=== PATIENT | female | born 1990 | race Caucasian/White ===

== ENCOUNTER 2018-07-12 10:52 | Outpatient (CLI) | payer MEDICAID, SELFPAY ==
[2018-07-12 11:40] LABS: Bilirubin Negative (Negative); Blood Negative (Negative); Clarity Clear; Glucose Negative (Negative); Ketones Negative (Negative); Leukocyte Esterase Negative (Negative); Nitrite Negative (Negative); Specific Gravity 1.015 (1.005-1.025); Urobilinogen 0.2 EU/dL (Up TO 0.2); pH 7.5 (5-8)
[2018-07-12 12:04] LABS: Abs Immature Grans 0.02 k/cumm (0.0-0.09); Absolute Basophil Count 0.03 k/cumm (0.0-0.2); Absolute Eosinophil Count 0.07 k/cumm (0.0-0.7); Absolute Lymphocyte Count 2.21 k/cumm (1.2-3.4); Absolute Monocyte Count 0.75 k/cumm (0.11-0.7); Absolute Neutrophil Count 3.61 k/cumm (1.2-6.7); Basophils % 0.4; HGB 14.3 g/dL (12.0-15.5); Immature Grans % 0.3; Mean Corp. HGB Concentration 33.3 g/dL (32.0-36.0); Mean Corpuscular Hemoglobin 29.4 pg (27.0-33.0); Mean Corpuscular Volume 88.5 fL (80-95); Mean Platelet Volume 9.7 fL (8.0-11.0); Monocytes % 11.2; Neutrophils % 54.1; Platelet Count 280 x1000/uL (130-400); RBC 4.86 m/cumm (4.00-5.20); RBC Distribution Width 13.1 % (11.7-14.6); White Blood Cell Count 6.69 k/cumm (4.4-10.8)
[2018-07-12 12:21] LABS: Hemoglobin A1C 5.4 % (4.5-6.2)
[2018-07-12 12:29] LABS: ALT 26 U/L (12-78); AST 19 U/L (15-37); Albumin 3.8 g/dL (3.4-5.0); Alkaline Phosphatase 94 U/L (46-116); Anion Gap 9.1 mmol/L (3-11); BUN 7 mg/dL (7-18); Bilirubin, Total 0.5 mg/dL (0.2-1.0); CO2 27.9 mmol/L (21.0-32.0); CREATININE 0.94 mg/dL (0.55-1.02); Calcium 9.5 mg/dL (8.5-10.1); Chloride 103 mmol/L (98-107); Cholesterol 160 mg/dL (50-200); Glucose 94 mg/dL (70-100); HDL Cholesterol 58 mg/dL (40-60); LDL CHOLESTEROL 87 mg/dL (<100); Potassium 4.3 mmol/L (3.5-5.1); Sodium 140 mmol/L (136-145); TSH 2.58 uIU/mL (0.358-3.74); Total Protein 7.1 g/dL (6.4-8.2); Triglyceride 78 mg/dL (30-150)
== END 2018-07-12 11:12 ==
PROVIDERS: PCP General Practice; Visit Provider Nurse Practitioner Psychiatric/Mental Health
DX: F20.9 Schizophrenia, unspecified (principal)
CPT/HCPCS: 36415; 80053; 80061; 83721; 81003; 83036; 84443; 85025

== ENCOUNTER 2018-08-30 15:30 | Outpatient (CLI) | payer MEDICAID, SELFPAY ==
[2018-08-30 15:54] LABS: Abs Immature Grans 0.01 k/cumm (0.0-0.09); Absolute Basophil Count 0.02 k/cumm (0.0-0.2); Absolute Eosinophil Count 0.13 k/cumm (0.0-0.7); Absolute Lymphocyte Count 2.71 k/cumm (1.2-3.4); Absolute Monocyte Count 0.78 k/cumm (0.11-0.7); Absolute Neutrophil Count 4.18 k/cumm (1.2-6.7); Basophils % 0.3; Eosinophils % 1.7; HCT 43.1 % (36.0-46.0); HGB 14.2 g/dL (12.0-15.5); Immature Grans % 0.1; Lymphocytes % 34.6; Mean Corp. HGB Concentration 32.9 g/dL (32.0-36.0); Mean Corpuscular Hemoglobin 29.3 pg (27.0-33.0); Mean Corpuscular Volume 88.9 fL (80-95); Mean Platelet Volume 9.4 fL (8.0-11.0); Neutrophils % 53.3; Platelet Count 299 x1000/uL (130-400); RBC 4.85 m/cumm (4.00-5.20); White Blood Cell Count 7.83 k/cumm (4.4-10.8)
[2018-08-30 16:02] LABS: Bilirubin Negative (Negative); Blood Negative (Negative); Clarity Clear; Glucose Negative (Negative); Ketones Negative (Negative); Leukocyte Esterase Negative (Negative); Nitrite Negative (Negative); Specific Gravity 1.025 (1.005-1.025); Urobilinogen 0.2 EU/dL (Up TO 0.2)
[2018-08-30 16:48] LABS: ALT 26 U/L (12-78); AST 18 U/L (15-37); Albumin 3.9 g/dL (3.4-5.0); Alkaline Phosphatase 100 U/L (46-116); Anion Gap 9.6 mmol/L (3-11); BUN 8 mg/dL (7-18); Bilirubin, Total 0.2 mg/dL (0.2-1.0); CO2 28.4 mmol/L (21.0-32.0); CREATININE 0.97 mg/dL (0.55-1.02); Calcium 8.9 mg/dL (8.5-10.1); Chloride 104 mmol/L (98-107); Glucose 81 mg/dL (70-100); Potassium 3.7 mmol/L (3.5-5.1); Sodium 142 mmol/L (136-145); TSH (W/Ref FT4) 2.07 uIU/mL (0.358-3.74)
[2018-09-02 10:21] LABS: Prolactin 55.4 ng/ml
== END 2018-08-30 15:50 ==
PROVIDERS: PCP General Practice; Visit Provider Nurse Practitioner Psychiatric/Mental Health
DX: F20.9 Schizophrenia, unspecified (principal); Z79.899 Other long term (current) drug therapy
CPT/HCPCS: 36415; 80053; 81003; 84146; 84443; 85025

== ENCOUNTER 2018-10-01 00:56 | Outpatient (CLI) | payer MEDICAID, SELFPAY ==
--- NOTE | 2018-10-01 14:53 | DI.US_ITS ---
SYMPTOMS/DIAGNOSIS: MASTODYNIA, N64.4, DENSE TISSUE AT STERNUM, BROWN NIPPLE DISCHARGE X 3 YEARS, H/O CYSTS IN BREAST LEFT BREAST ULTRASOUND: Left breast ultrasound was performed. All four quadrants of the left breast were evaluated sonographically. No suspicious cystic or solid masses are seen sonographically. IMPRESSION: Negative left breast ultrasound. The findings were discussed with the patient on the date of the examination.
== END 2018-10-01 01:16 ==
PROVIDERS: PCP General Practice; Visit Provider Nurse Practitioner Women's Health
DX: N64.4 Mastodynia (principal); N64.52 Nipple discharge
CPT/HCPCS: 76642

== ENCOUNTER 2018-12-23 13:57 | Outpatient (CLI) | payer MEDICAID, SELFPAY ==
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
== END 2018-12-23 14:17 ==
PROVIDERS: PCP General Practice; Visit Provider General Practice
DX: M79.671 Pain in right foot (principal)
CPT/HCPCS: 73630

== ENCOUNTER 2019-06-18 16:29 | Outpatient (REF) | payer MEDICAID, SELFPAY ==
--- NOTE | 2019-06-18 15:00 | PAPFT_PTH ---
PATIENT: Avril Adams V LOC: [facility] U#:[id number] AGE/SX: 28/F ROOM: RE06/18/[address]: Jacquelin Murray NP : 1990 BED: DIS: 06/18/2019 SPEC #: [id number] RECD: 06/18/19 18:01 STATUS: FE RECatina #: [id number] NITIN: 06/18/19 15:[address]: Jacquelin Murray NP DEPT: [facility] Cytology RECD BY: Franchesca Gaston ENTERED: 06/18/19 18:01 SP TYPE: PAPFT OTHR DR: Flip Cabezas Tissues: 1 - CX/ENDOCX FOR PAP SMEARS Procedures: PAP THIN PREP/UVM Screening Comments: [id number]
== END 2019-06-18 16:49 ==
LOC: LBN 16:29
PROVIDERS: PCP General Practice; Visit Provider Nurse Practitioner Women's Health
DX: Z12.4 Encounter for screening for malignant neoplasm of cervix (principal)
CPT/HCPCS: 88142

== ENCOUNTER 2019-12-25 21:22 | Inpatient (IN) | payer MEDICAID, SELFPAY ==
[2019-12-25] VITALS (14 sets, daily range): BP systolic 131–173; BP diastolic 82–100; PULSE 81–118; RESP 16–33; TEMP 36.3–36.8; O2SAT 90–96
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
--- NOTE | 2019-12-25 21:30 | RT.EKG_ITS ---
APPROVED REPORT Exam: Resting ECG Patient Location: E HR:106 bpm ECG Measurements Heart Rate 106 AXIS NJ 128 P 51 QRSd 78 QRS 52 QT 358 T -26 QTc 477 <Conclusion> Sinus tachycardia...rate> 99 Probable left atrial enlargement...P >50mS, <-0.10mV V1, QRS normal, no STEMI, intervals normal.
[2019-12-25 21:49] LABS: Abs Immature Grans 0.03 10^3/uL (0.0-0.06); Absolute Basophil Count 0.05 10^3/uL (0.0-0.2); Absolute Eosinophil Count 0.13 10^3/uL (0.0-0.7); Absolute Lymphocyte Count 3.17 10^3/uL (1.2-3.4); Absolute Monocyte Count 0.96 10^3/uL (0.1-0.8); Absolute Neutrophil Count 5.71 10^3/uL (1.2-6.7); Basophils % 0.5; Eosinophils % 1.3; HCT 45.2 % (36.0-46.0); Immature Grans % 0.3; Lymphocytes % 31.5; MCH 29.3 pg (27.0-33.0); MCHC 33.2 % (32.0-36.0); MCV 88.3 fL (80-95); MPV 9.8 fL (8.0-11.0); Monocytes % 9.6; Neutrophils % 56.8; Platelet Count 302 10^3/uL (130-400); RBC 5.12 10^6/uL (3.93-5.22); RDW 12.3 % (11.7-14.6); WBC 10.05 10^3/uL (4.4-10.8)
[2019-12-25 22:08] LABS: HCG Qual (Serum) Negative
[2019-12-25 22:10] LABS: ALT 30 U/L (14-59); AST 19 U/L (15-37); Albumin 3.9 g/dL (3.4-5.0); Alkaline Phosphatase 104 U/L (46-116); Anion Gap 10.6 mmol/L (3-11); BUN 9 mg/dL (7-18); Bilirubin, Total 0.2 mg/dL (0.2-1.0); CO2 24.4 mmol/L (21.0-32.0); Calcium 9.5 mg/dL (8.5-10.1); Chloride 103 mmol/L (98-107); Glucose 104 mg/dL (74-106); Potassium 3.6 mmol/L (3.5-5.1); Sodium 138 mmol/L (136-145); Total Protein 7.3 g/dL (6.4-8.2)
[2019-12-25 22:11] LABS: ETHANOL BLOOD < 3.0 mg/dL (<3); Troponin I < 0.05 ng/mL (<0.06)
[2019-12-25 22:15] LABS: Salicylate < 2.8 mg/dL (2.8-20.0)
[2019-12-25 22:18] LABS: Bilirubin Negative (Negative); Blood Negative (Negative); Clarity Clear (Clear); Glucose Negative (Negative); Ketones Negative (Negative); Leukocyte Esterase Negative (Negative); Nitrite Negative (Negative); Urobilinogen 0.2 EU/dL (Up TO 0.2); pH 6.5 (5-8)
[2019-12-25 22:18] LABS: Acetaminophen < 2 ug/mL (10-30)
[2019-12-25 22:31] LABS: *AMPHETAMINES SCREEN URINE Negative (Negative); *BARBITURATES SCREEN URINE Negative (Negative); *BENZODIAZEPINES SCREEN URINE Negative (Negative); Cannabinoids THC Negative (Negative); Cocaine Screen,Urine Negative (Negative); METHADONE URINE SCREEN Negative (Negative); OPIATES URINE SCREEN Negative (Negative)
[2019-12-25 22:32] LABS: Tricyclic Antidepressants Negative (Negative)
[2019-12-26] VITALS (53 sets, daily range): BP systolic 98–146; BP diastolic 65–125; PULSE 81–148; RESP 12–25; TEMP 36.6–36.7; O2SAT 93–99
[2019-12-26 02:35] LABS: Acetaminophen < 2 ug/mL (10-30)
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
[2019-12-26] MEDS: Normal Saline Flush 10 ML SYR IVP (06:54)
[2019-12-26] MEDS: Normal Saline 500 ML IV (06:54)
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
--- NOTE | 2019-12-26 09:30 | NUR.NOTE ---
RN calls pharmacy to find out the status of patient's home medications. Pharmacist tells RN we are waiting on patient's home medications to be dony to hospital.Nursing Note:
--- NOTE | 2019-12-26 10:25 | PHA.REVIEW ---
Pharmacy Admission Review - Admission Clinical Review (Last Reviewed 12/26/19 @ 05:58 by Perry Coello MD) Suicide attempt by drug overdose (Acute) acetaminophen [From Vicodin] Allergy (Severe, Verified 12/25/19 22:14) Anaphylaxsis hydrocodone bitartrate [From Vicodin] Allergy (Severe, Verified 12/25/19 22:14) Anaphylaxsis gluten Allergy (Intermediate, Unverified 12/25/19 22:14) lactase [From Dairy Aid] Allergy (Intermediate, Unverified 12/25/19 22:14) Height 5 ft 4 in Weight 95.2 kg - Renal Dosing Renal Dosing: BUN 9 mg/dL (7-18) 12/25/19 21:40 Creatinine 1.00 mg/dL (0.55-1.02) 12/25/19 21:40 Medications needing adjustments: Reviewed (CrCl ~92.1 using adjusted BW. Current meds okay) - Anticoagulation Anticoagulation: Hgb 15.0 g/dL (11.2-15.7) 12/25/19 21:40 Hct 45.2 % (36.0-46.0) 12/25/19 21:40 Plt Count 302 10^3/uL (130-400) 12/25/19 21:40 Creatinine 1.00 mg/dL (0.55-1.02) 12/25/19 21:40 DVT Prohphylaxis: N/A Therapeutic Anticoagulation: N/A - Opiate Usage Evaluate Pain Scale/Pains Meds: N/A - Relevant Labs Sodium 138 mmol/L (136-145) 12/25/19 21:40 Potassium 3.6 mmol/L (3.5-5.1) 12/25/19 21:40 Chloride 103 mmol/L (98-107) 12/25/19 21:40 Magnesium 2.0 mg/dL (1.8-2.4) 12/25/19 21:40 Electrolytes, C-Reactive P, ESR: Reviewed (Labs look good) - DM Control DM Control: Glucose 104 mg/dL (74-106) 12/25/19 21:40 Insulin Dosing: N/A - Heart Failure/RI Heart Failure/RI: Troponin I < 0.05 ng/mL (<0.06) 12/25/19 21:40 EF%, ROBERTO's, B-Blockers, Diuretics: N/A - BP Control BP Control: Blood Pressure [Left Arm] 137/88 Blood Pressure [Left Arm] 133/98 Blood Pressure 146/74 Blood Pressure 173/82 If elevated: Reviewed (BP was consistently elevated upon admission, last reading was within normal range) - Qtc Review If Elevated: N/A (No recent EKG labs) - IV to PO Switch IV Medications: Reviewed - Home Meds Relevent Home Meds Not ordered & why?: Clonazepam, cranberry extract, fluoxetine, hydroxyzine, magnesium oxide, nephro-eric, olanzapine - Current meds Current Medication Order Review: Reviewed (Currently recieving fluids and taking at home norethidrone and acetylcysteine.) - Comments Comments/Follow Ups: Labs look normal, monitor BP. Came in having taken 165mg olanzapine, 18mg clonazepam, 125mg hydroxyzine, and 240mg fluoxetine. Patient will most likely be sent to a psychiatric inpatient treatment center after being medically cleared.
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
[2019-12-26 13:25] LABS: COVID-19 RT-PCR UVMMC Result Negative (Negative)
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
--- NOTE | 2019-12-26 14:20 | NUR.NOTE ---
RN speaks to patient about going home and working out problems in constructive ways which takes many forms including counseling. Patient appreciative of the give and take talk. Nursing Note:
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
== END 2019-12-26 17:26 | disposition home or self-care (01) | DRG 918 ==
LOC: ER 22:55 → ICU 23:17
PROVIDERS: Admitting Provider Family Medicine; Emergency Provider Physician Assistant; PCP Nurse Practitioner; Visit Provider Family Medicine
DX: T43.592A Poisoning by other antipsychotics and neuroleptics, intentional self-harm, initial encounter (principal); F84.0 Autistic disorder; G40.89 Other seizures; T43.222A Poisoning by selective serotonin reuptake inhibitors, intentional self-harm, initial encounter; T42.4X2A Poisoning by benzodiazepines, intentional self-harm, initial encounter; R00.0 Tachycardia, unspecified; F31.9 Bipolar disorder, unspecified; F43.10 Post-traumatic stress disorder, unspecified; F20.9 Schizophrenia, unspecified
CPT/HCPCS: 36415; 80053; 80307; 93005; 99222; 99238; 99285; NC; U0003; 80320; 80329; 81003; 83735; 84484; 84703; 85025; 93010; 99235

== ENCOUNTER 2020-01-14 02:20 | Outpatient (CLI) | payer MEDICAID, SELFPAY ==
[2020-01-14 11:19] LABS: Abs Immature Grans 0.03 10^3/uL (0.0-0.06); Absolute Basophil Count 0.04 10^3/uL (0.0-0.2); Absolute Lymphocyte Count 1.94 10^3/uL (1.2-3.4); Absolute Monocyte Count 0.58 10^3/uL (0.1-0.8); Absolute Neutrophil Count 4.27 10^3/uL (1.2-6.7); Basophils % 0.6; Eosinophils % 1.4; HCT 45.9 % (36.0-46.0); HGB 15.1 g/dL (11.2-15.7); Immature Grans % 0.4; Lymphocytes % 27.9; MCH 29.5 pg (27.0-33.0); MCHC 32.9 % (32.0-36.0); MCV 89.8 fL (80-95); MPV 9.6 fL (8.0-11.0); Monocytes % 8.3; Neutrophils % 61.4; Nucleated RBC 0 %; Platelet Count 304 10^3/uL (130-400); RBC 5.11 10^6/uL (3.93-5.22); RDW 12.6 % (11.7-14.6); RDW-SD 41.4 fL; WBC 6.96 10^3/uL (4.4-10.8)
[2020-01-14 11:44] LABS: Hemoglobin A1C 5.4 % (3.8-5.6)
[2020-01-14 12:16] LABS: Lithium 0.37 mmol/L (0.60-1.20)
[2020-01-14 12:32] LABS: ALT 37 U/L (14-59); AST 15 U/L (15-37); Alkaline Phosphatase 101 U/L (46-116); Anion Gap 8.8 mmol/L (3-11); BUN 8 mg/dL (7-18); Bilirubin, Total 0.6 mg/dL (0.2-1.0); CO2 26.2 mmol/L (21.0-32.0); CREATININE 0.87 mg/dL (0.55-1.02); Calcium 9.5 mg/dL (8.5-10.1); Calculated LDL 72 mg/dL (<100); Chloride 106 mmol/L (98-107); Cholesterol 138 mg/dL (<200); Glucose 88 mg/dL (74-106); HDL Cholesterol 46 mg/dL (40-60); Potassium 4.4 mmol/L (3.5-5.1); Sodium 141 mmol/L (136-145); TSH 2.23 uIU/mL (0.36-3.74); Triglyceride 102 mg/dL (<150)
== END 2020-01-14 02:40 ==
PROVIDERS: PCP Nurse Practitioner
DX: T50.902A Poisoning by unspecified drugs, medicaments and biological substances, intentional self-harm, initial encounter (principal); T43.59 Poisoning by, adverse effect of and underdosing of other antipsychotics and neuroleptics; Z79.899 Other long term (current) drug therapy; Z51.81 Encounter for therapeutic drug level monitoring
CPT/HCPCS: 36415; 80053; 80061; 80178; 83036; 84443; 85025

== ENCOUNTER 2020-03-16 09:51 | Outpatient (CLI) | payer MEDICAID, SELFPAY ==
--- NOTE | 2020-03-16 10:45 | DI.RAD_ITS ---
EXAM: XR SHOULDER LT COMPLETE 2+V CLINICAL HISTORY: left shoulder pain, M25.512, S/P FALL. TECHNIQUE: 2D digital imaging was performed. COMPARISON: No exams were available for comparison FINDINGS: BONES: No acute fracture is present. No bony destructive lesion is seen. JOINTS: No dislocation present. The AC joint is not widened. SOFT TISSUE: Normal. IMPRESSION: Unremarkable radiographs of the left shoulder. DATA REPOSITORY: RADIATION DOSE DELIVERED:
--- NOTE | 2020-03-16 10:45 | DI.RAD_ITS ---
EXAM: XR HUMERUS LT CLINICAL HISTORY: left humerus pain, s/p fall, M79.622. TECHNIQUE: 2D digital imaging was performed. COMPARISON: No exams were available for comparison FINDINGS: BONES: No acute fracture is present. No bony destructive lesion is seen. Visualized portion of elbow and shoulder joints are unremarkable. SOFT TISSUE: Normal. IMPRESSION: Unremarkable radiographs of the left humerus. DATA REPOSITORY: RADIATION DOSE DELIVERED:
== END 2020-03-16 10:11 ==
PROVIDERS: PCP Nurse Practitioner; Visit Provider Nurse Practitioner Family
DX: M25.512 Pain in left shoulder (principal); M79.622 Pain in left upper arm
CPT/HCPCS: 73030; 73060

== ENCOUNTER 2020-03-22 12:32 | Outpatient (CLI) | payer MEDICAID, SELFPAY ==
[2020-03-24 19:28] LABS: Patient Race White; SARS-CoV-2 RNA Undetected (Undetected); SARS-CoV-2 Specimen Source Nasal
== END 2020-03-22 12:52 ==
PROVIDERS: PCP Nurse Practitioner; Visit Provider Family Medicine
DX: R50.9 Fever, unspecified (principal)
CPT/HCPCS: U0003

== ENCOUNTER 2020-06-22 15:34 | Outpatient (REF) | payer MEDICAID, SELFPAY ==
[2020-06-24 13:16] LABS: COVID-19 RT-PCR UVMMC Result Negative (Negative)
== END 2020-06-22 15:54 ==
LOC: LBN 15:34
PROVIDERS: PCP Nurse Practitioner; Visit Provider Physician Assistant
DX: Z11.52 Encounter for screening for COVID-19 (principal)
CPT/HCPCS: U0003

== ENCOUNTER 2020-08-04 04:04 | Outpatient (CLI) | payer MEDICAID, SELFPAY ==
[2020-08-04 13:35] LABS: Lithium 0.3 mmol/l (0.6-1.2)
[2020-08-04 13:49] LABS: TSH 2.17 uIU/mL (0.36-3.74)
== END 2020-08-04 04:05 | disposition home or self-care (01) ==
PROVIDERS: PCP Nurse Practitioner
DX: F25.0 Schizoaffective disorder, bipolar type (principal); Z51.81 Encounter for therapeutic drug level monitoring; Z79.899 Other long term (current) drug therapy
CPT/HCPCS: 36415; 80178; 84443

== ENCOUNTER 2020-08-24 14:49 | Outpatient (REF) | payer MEDICAID, SELFPAY | END 2020-08-24 14:50 | disposition home or self-care (01) | LOC: LBN 14:49 | PROVIDERS: PCP Nurse Practitioner; Visit Provider Internal Medicine | DX: R31.9 Hematuria, unspecified (principal); R35.0 Frequency of micturition | CPT/HCPCS: 87086 ==

== ENCOUNTER 2021-01-25 13:31 | Outpatient (CLI) | payer MEDICAID, SELFPAY ==
[2021-01-25 14:10] LABS: Abs Immature Grans 0.02 10^3/uL (0.0-0.06); Absolute Basophil Count 0.05 10^3/uL (0.0-0.2); Absolute Eosinophil Count 0.13 10^3/uL (0.0-0.7); Absolute Lymphocyte Count 2.16 10^3/uL (1.2-3.4); Absolute Monocyte Count 0.76 10^3/uL (0.1-0.8); Absolute Neutrophil Count 4.22 10^3/uL (1.2-6.7); Basophils % 0.7; Eosinophils % 1.8; HCT 46.4 % (36.0-46.0); HGB 14.8 g/dL (11.2-15.7); Immature Grans % 0.3; Lymphocytes % 29.4; MCH 29.2 pg (27.0-33.0); MCHC 31.9 % (32.0-36.0); MCV 91.7 fL (80-95); MPV 9.5 fL (8.0-11.0); Monocytes % 10.4; Neutrophils % 57.4; Nucleated RBC 0 %; Platelet Count 323 10^3/uL (130-400); RBC 5.06 10^6/uL (3.93-5.22); RDW 12.1 % (11.7-14.6); RDW-SD 41.1 fL; WBC 7.34 10^3/uL (4.4-10.8)
[2021-01-25 14:37] LABS: Hemoglobin A1C 5.2 % (<5.7)
[2021-01-25 14:59] LABS: Lithium 0.3 mmol/l (0.6-1.2)
[2021-01-25 15:14] LABS: ALT 34 U/L (14-59); AST 15 U/L (15-37); Albumin 4.1 g/dL (3.4-5.0); Alkaline Phosphatase 103 U/L (46-116); Anion Gap 10.7 mmol/L (3-11); BUN 11 mg/dL (7-18); Bilirubin, Total 0.4 mg/dL (0.2-1.0); CO2 26.3 mmol/L (21.0-32.0); CREATININE 1.2 mg/dL (0.55-1.02); Calcium 9.5 mg/dL (8.5-10.1); Calculated LDL 68 mg/dL (<100); Chloride 105 mmol/L (98-107); Cholesterol 144 mg/dL (<200); Glucose 125 mg/dL (74-106); HDL Cholesterol 46 mg/dL (40-60); Sodium 142 mmol/L (136-145); TSH 2.03 uIU/mL (0.36-3.74); Total Protein 7.2 g/dL (6.4-8.2); Triglyceride 150 mg/dL (<150)
[2021-01-25 23:00] LABS: Prolactin 121.9 ng/mL (See Table)
== END 2021-01-25 13:32 | disposition home or self-care (01) ==
PROVIDERS: PCP Nurse Practitioner; Visit Provider Nurse Practitioner
DX: F25.0 Schizoaffective disorder, bipolar type (principal); F43.12 Post-traumatic stress disorder, chronic; F84.0 Autistic disorder; F44.5 Conversion disorder with seizures or convulsions; Z79.899 Other long term (current) drug therapy; Z51.81 Encounter for therapeutic drug level monitoring
CPT/HCPCS: 36415; 80053; 80061; 80178; 83036; 84146; 84443; 85025

== ENCOUNTER 2021-02-21 18:27 | Outpatient (REF) | payer MEDICAID, SELFPAY ==
[2021-02-21 22:01] LABS: Abs Immature Grans 0.01 10^3/uL (0.0-0.06); Absolute Basophil Count 0.03 10^3/uL (0.0-0.2); Absolute Eosinophil Count 0.11 10^3/uL (0.0-0.7); Absolute Lymphocyte Count 2.26 10^3/uL (1.2-3.4); Absolute Monocyte Count 0.58 10^3/uL (0.1-0.8); Absolute Neutrophil Count 3.14 10^3/uL (1.2-6.7); Basophils % 0.5; Eosinophils % 1.8; HCT 43.7 % (36.0-46.0); HGB 14.1 g/dL (11.2-15.7); Immature Grans % 0.2; Lymphocytes % 36.9; MCH 29.6 pg (27.0-33.0); MCHC 32.3 % (32.0-36.0); MCV 91.6 fL (80-95); MPV 10.4 fL (8.0-11.0); Monocytes % 9.5; Neutrophils % 51.1; Nucleated RBC 0 %; Platelet Count 312 10^3/uL (130-400); RBC 4.77 10^6/uL (3.93-5.22); RDW 12.2 % (11.7-14.6); RDW-SD 41.1 fL; WBC 6.13 10^3/uL (4.4-10.8)
[2021-02-21 22:02] LABS: Bilirubin Negative (Negative); Blood Trace-intact (Negative); Clarity Sl Cloudy (Clear); Glucose Negative (Negative); Ketones Negative (Negative); Leukocyte Esterase Negative (Negative); Nitrite Negative (Negative); Specific Gravity >= 1.030 (1.005-1.025); Urobilinogen 0.2 EU/dL (Up TO 0.2); pH 6.5 (5-8)
[2021-02-21 22:10] LABS: Bacteria Moderate HPF (Negative); Casts Negative LPF (Negative); Crystals Negative HPF (Negative); Epithelial Cells Few HPF (Negative); Mucus Negative (Negative); WBC Negative HPF (0-5)
[2021-02-21 22:11] LABS: C & S Indicated? Yes
[2021-02-21 22:34] LABS: ALT 27 U/L (14-59); AST 20 U/L (15-37); Albumin 3.9 g/dL (3.4-5.0); Alkaline Phosphatase 85 U/L (46-116); Anion Gap 7.1 mmol/L (3-11); BUN 7 mg/dL (7-18); Bilirubin, Total 0.4 mg/dL (0.2-1.0); CO2 27.9 mmol/L (21.0-32.0); CREATININE 0.8 mg/dL (0.55-1.02); Calcium 9.2 mg/dL (8.5-10.1); Chloride 107 mmol/L (98-107); Glucose 107 mg/dL (74-106); Sodium 142 mmol/L (136-145)
[2021-02-23 15:46] LABS: COVID-19 RT-PCR UVMMC Result Negative (Negative)
== END 2021-02-21 18:28 | disposition home or self-care (01) ==
LOC: LBN 18:27
PROVIDERS: PCP Nurse Practitioner; Visit Provider Physician Assistant
DX: R35.0 Frequency of micturition (principal); R39.89 Other symptoms and signs involving the genitourinary system; R10.9 Unspecified abdominal pain; R19.4 Change in bowel habit; Z20.822 Contact with and (suspected) exposure to COVID-19
CPT/HCPCS: 80053; U0003; 81003; 81015; 85025; 87086

== ENCOUNTER 2021-05-25 00:52 | Outpatient (CLI) | payer MEDICAID, SELFPAY ==
[2021-05-26 03:20] LABS: COVID-19 RT-PCR UVMMC Result Negative (Negative)
== END 2021-05-25 00:53 | disposition home or self-care (01) ==
LOC: LBO 00:52
PROVIDERS: PCP Nurse Practitioner; Visit Provider Nurse Practitioner
DX: Z20.822 Contact with and (suspected) exposure to COVID-19 (principal)
CPT/HCPCS: U0003

== ENCOUNTER 2021-08-11 03:42 | Outpatient (CLI) | payer MEDICAID, SELFPAY | END 2021-08-11 03:43 | disposition home or self-care (01) | LOC: LBO 03:42 | PROVIDERS: PCP Nurse Practitioner; Visit Provider Psychiatry & Neurology Psychiatry ==

== ENCOUNTER 2021-08-31 03:04 | Outpatient (CLI) | payer MEDICAID, SELFPAY ==
[2021-08-31 22:30] LABS: Prolactin 53.2 ng/mL (See Note)
== END 2021-08-31 03:05 | disposition home or self-care (01) ==
PROVIDERS: PCP Nurse Practitioner; Visit Provider Psychiatry & Neurology Psychiatry
DX: F25.0 Schizoaffective disorder, bipolar type (principal); E22.1 Hyperprolactinemia
CPT/HCPCS: 36415; 84146

== ENCOUNTER → 2021-09-26 01:08 | Outpatient (CLI) | payer MEDICAID, SELFPAY ==
--- NOTE | 2021-09-26 08:30 | DI.US_ITS ---
Exam(s) US PELVIS TRANSVAGINAL EXAM: US PELVIS TRANSVAGINAL CLINICAL HISTORY: pelvic pain,R10.2 TECHNIQUE: Transabdominal and transvaginal imaging was performed using standard protocol. COMPARISON: No exams were available for comparison FINDINGS: KIDNEYS: Kidneys are symmetric in size. No evidence of renal calculi. No evidence of hydronephrosis. No renal mass or cyst identified. UTERUS: Anteverted. 7.1 x 2.4 x 4.1 cm Endometrium: 2 millimeters Myometrium: Unremarkable. Cervix: Unremarkable. OVARIES: Right: Cyst or mass: None. Left: Cyst or mass: None. DOPPLER: Color: Symmetric and uniform flow to both ovaries. No hyperemia. Duplex: Normal ovarian arterial waveforms visualized. CUL-DE-SAC: Free fluid: None. IMPRESSION: 1. Normal-appearing uterus with endometrial stripe within normal limits. 2. Unremarkable bilateral ovaries. DATA REPOSITORY:
== END ==
PROVIDERS: PCP Nurse Practitioner; Visit Provider Nurse Practitioner Women's Health
DX: R10.2 Pelvic and perineal pain (principal)
CPT/HCPCS: 76830; 76856

== ENCOUNTER 2022-02-09 04:11 | Outpatient (CLI) | payer MEDICAID, SELFPAY ==
[2022-02-09 11:42] LABS: Hemoglobin A1C 5.2 % (<5.7)
[2022-02-09 12:13] LABS: Anion Gap 8.5 mmol/L (3-11); BUN 15 mg/dL (7-18); CO2 26.5 mmol/L (21.0-32.0); Calcium 9.3 mg/dL (8.5-10.1); Calculated LDL 70 mg/dL (<100); Chloride 106 mmol/L (98-107); Cholesterol 128 mg/dL (<200); Estimated GFR 76.76 (mL/min/1.73m2); Glucose 97 mg/dL (74-106); HDL Cholesterol 44 mg/dL (40-60); Potassium 3.8 mmol/L (3.5-5.1); Sodium 141 mmol/L (136-145); Triglyceride 70 mg/dL (<150)
[2022-02-09 12:16] LABS: Lithium 0.6 mmol/l (0.6-1.2)
[2022-02-09 12:30] LABS: FREE T4 0.86 ng/dL (0.76-1.46)
[2022-02-09 22:33] LABS: Prolactin 19.3 ng/mL (See Note)
== END 2022-02-09 04:12 | disposition home or self-care (01) ==
LOC: LBO 04:11
PROVIDERS: PCP Nurse Practitioner; Visit Provider Psychiatry & Neurology Psychiatry
DX: E22.1 Hyperprolactinemia (principal); N64.3 Galactorrhea not associated with childbirth; Z79.899 Other long term (current) drug therapy
CPT/HCPCS: 36415; 80048; 80061; 80178; 83036; 84146; 84439; 84443

== ENCOUNTER 2022-05-26 03:18 | Outpatient (CLI) | payer MEDICAID, SELFPAY ==
[2022-05-26 17:28] LABS: TSH (W/Ref FT4) 2.97 uIU/mL (0.36-3.74)
== END 2022-05-26 03:19 | disposition home or self-care (01) ==
LOC: LBO 03:18
PROVIDERS: PCP Nurse Practitioner
DX: F25.0 Schizoaffective disorder, bipolar type (principal); Z79.899 Other long term (current) drug therapy
CPT/HCPCS: 36415; 84443

== ENCOUNTER 2022-07-21 02:10 | Outpatient (CLI) | payer MEDICAID, SELFPAY ==
[2022-07-21 15:35] LABS: Lithium 0.5 mmol/l (0.6-1.2)
== END 2022-07-21 02:11 | disposition home or self-care (01) ==
LOC: LBO 02:11
PROVIDERS: PCP Nurse Practitioner; Visit Provider Student in an Organized Health Care Education/Training Program
DX: F25.0 Schizoaffective disorder, bipolar type (principal)
CPT/HCPCS: 36415; 80178

== ENCOUNTER 2022-08-18 15:56 | Outpatient (CLI) | payer MEDICAID, SELFPAY ==
--- NOTE | 2022-08-18 15:30 | DI.CT_ITS ---
Exam(s) CT NECK CHEST ABD PEL W EXAM: CT NECK CHEST ABD PEL W CLINICAL HISTORY: general lymphadenopathy and malaise, neck swelling, R22.1 TECHNIQUE: Imaging Protocol: Axial computed tomography images with coronal and sagittal reformatted images were created and reviewed CONTRAST MATERIAL: Intravenous: Omnipaque 350 Contrast volume 100 cc Oral: yes / COMPARISON: CT ABD PELVIS WITH CONTRAST from 02/08/2016 FINDINGS: Neck CT: Thyroid: Diffusely enlarged. No focal nodules. Parotids/submandibular/glands: Normal. Lymphadenopathy: There are scattered lymph nodes seen along the level one to level three all measur ing less than 8 mm in short axis diameter which are physiologic in nature. Carotids/Jugular: Within normal limits. Soft tissues: No soft tissue swelling visible. No fluid collection. The floor the mouth is unremark able. The epiglottis and vocal cords are within normal limits. Images through both lung apices are un remarkable. Visualized portions of the brain unremarkable as visualized. Bones: No lytic or blastic lesion. Cervical alignment normal. Chest CT: Tracheobronchial tree: Patent where visualized. Mediastinum and [place]: No dominant adenopathy or fluid collection. Pulmonary parenchyma: No consolidation or dominant measurable mass. No architectural distortion. Pleura: No effusion or pneumothorax. Heart/Aorta: Thoracic aorta non-dilated. The heart is not dilated. No coronary artery calcifications are seen. Upper abdomen: Unremarkable. ABDOMEN: Lung Bases: Normal where visualized. Liver: Normal density. No measurable mass. Gallbladder and biliary tract: No radiodense calculus or dilation. Pancreas: Normal density, no abnormal calcifications or inflammatory process. Spleen: Normal. Kidneys: Incomplete rotation of the right kidney.. No radiodense stones or obstructive uropathy. No masses seen. Adrenal glands: No masses seen. Abdominal Aorta: Abdominal portion non-dilated. PELVIS: Bladder: Symmetric distention, no gross wall thickening. Bowel: No obstruction or bowel wall thickening. Peritoneal cavity: No ascites, collection or mesenteric inflammatory response. Bones: Within normal limits. IMPRESSION: Diffusely enlarged thyroid. No evidence of adenopathy in the neck, chest, abdomen or pelvis. Unremarkable CT of the chest, Abdomen and Pelvis. RADIATION DOSE DELIVERED: 1,884.56mGy.cm Total DLP 1,884.56mGy.cm Total DLP DATA REPOSITORY: All CT scans at this facility are submitted to the National Radiology Data Registry (NRDR) Dose Index Registry (DIR) with the [employer] (ACR). RADIATION OPTIMIZATION: All CT scans at this facility use at least one of these dose optimization te chniques: automated exposure control; mA and/or kV adjustment per patient size (includes targeted exa ms where dose is matched to clinical indication); or iterative reconstruction.
[2022-08-18 16:15] LABS: Abs Immature Grans 0.02 10^3/uL (0.0-0.06); Absolute Basophil Count 0.06 10^3/uL (0.0-0.2); Absolute Eosinophil Count 0.22 10^3/uL (0.0-0.7); Absolute Lymphocyte Count 2.38 10^3/uL (1.2-3.4); Absolute Monocyte Count 0.78 10^3/uL (0.1-0.8); Absolute Neutrophil Count 6.93 10^3/uL (1.2-6.7); Basophils % 0.6; Eosinophils % 2.1; HCT 44.6 % (36.0-46.0); HGB 14.6 g/dL (11.2-15.7); Immature Grans % 0.2; Lymphocytes % 22.9; MCH 30.7 pg (27.0-33.0); MCHC 32.7 % (32.0-36.0); MCV 94 fL (80-95); Monocytes % 7.5; Neutrophils % 66.7; Platelet Count 334 10^3/uL (130-400); RBC 4.75 10^6/uL (3.93-5.22); RDW 12.3 % (11.7-14.6); RDW-SD 42.8 fL; WBC 10.39 10^3/uL (4.4-10.8)
[2022-08-18 16:24] LABS: Estimated GFR 76.29 (mL/min/1.73m2)
[2022-08-18 16:31] LABS: ALT 42 U/L (14-59); AST 20 U/L (15-37); Alkaline Phosphatase 96 U/L (46-116); Anion Gap 7.5 mmol/L (3-11); BUN 5 mg/dL (7-18); Bilirubin, Total 0.4 mg/dL (0.2-1.0); CO2 27.5 mmol/L (21.0-32.0); Calcium 9.3 mg/dL (8.5-10.1); Chloride 108 mmol/L (98-107); Estimated GFR 76.29 (mL/min/1.73m2); Glucose 104 mg/dL (74-106); Potassium 3.7 mmol/L (3.5-5.1); Sodium 143 mmol/L (136-145); Total Protein 7.2 g/dL (6.4-8.2)
--- NOTE | 2022-08-18 18:41 | DI.VRAD_ITS ---
PROCEDURE INFORMATION: Exam: CT Neck With Contrast Exam date and time: 08/18/2022 5:39 PM Age: 32 years old Clinical indication: Other: General lymphadenopaty and malaise, neck swelling TECHNIQUE: Imaging protocol: Computed tomography of the neck with contrast. Contrast material: 350; Contrast volume: 100 ml; Contrast route: INTRAVENOUS (IV); COMPARISON: CR XR HUMERUS LT 03/16/2020 1:17 PM FINDINGS: Pharynx: Unremarkable. No significant tonsillar enlargement. Larynx: Normal epiglottis. Prevertebral and retropharyngeal spaces: Unremarkable. Salivary glands: Normal. Glands are normal in size. Thyroid: Thyromegaly without focal nodules identified on CT. Slight substernal extension. Lymph nodes: No significant adenopathy in the neck. Trachea: Visualized trachea is unremarkable. Lungs: Unremarkable as visualized. Bones/joints: Reversal of the normal cervical lordosis. No acute fracture or subluxation. Soft tissues: No significant soft tissue swelling. IMPRESSION: Thyromegaly without focal nodules identified on CT. Slight substernal extension. Consider thyroid ultrasound when clinically appropriate. PROCEDURE INFORMATION: Exam: CT Chest With Contrast; Diagnostic Exam date and time: 08/18/2022 5:39 PM Age: 32 years old Clinical indication: Other: General lymphadenopaty and malaise, neck swelling TECHNIQUE: Imaging protocol: Diagnostic computed tomography of the chest with contrast. Contrast material: 350; Contrast volume: 100 ml; Contrast route: INTRAVENOUS (IV); COMPARISON: CT ABD PELVIS WITH CONTRAST 02/08/2016 2:02 PM FINDINGS: Thyroid: Regarding the thyroid please see neck CT above. Lungs: Minimal dependent subsegmental atelectasis. No airspace consolidation. Pleural spaces: No pneumothorax. No pleural effusion. Heart: No cardiomegaly. No pericardial effusion. Lymph nodes: No enlarged lymph nodes. Vasculature: No aortic aneurysm. Bones/joints: No acute fracture. Soft tissues: No suspicious lesions. IMPRESSION: 1. No acute findings. 2. Incidental findings as described. PROCEDURE INFORMATION: Exam: CT Abdomen And Pelvis With Contrast Exam date and time: 08/18/2022 5:39 PM Age: 32 years old Clinical indication: Other: General lymphadenopaty and malaise, neck swelling TECHNIQUE: Imaging protocol: Computed tomography of the abdomen and pelvis with contrast. Contrast material: 350; Contrast volume: 100 ml; Contrast route: INTRAVENOUS (IV); COMPARISON: CT ABD PELVIS WITH CONTRAST 02/08/2016 2:02 PM FINDINGS: Liver: No mass. Gallbladder and bile ducts: No calcified stones. No ductal dilation. Pancreas: No ductal dilation. No masses. Spleen: No splenomegaly or focal lesions. Adrenal glands: No mass. Kidneys and ureters: Congenital malrotation of the right kidney. Benign-appearing right and left extrarenal pelvis favored over a minor chronic UPJ obstruction. No calyceal dilation. No renal masses. Stomach and bowel: No obstruction. No mucosal thickening. Appendix: No evidence of appendicitis. Intraperitoneal space: Trace cul-de-sac free fluid appears within physiologic limits. Vasculature: No abdominal aortic aneurysm. Lymph nodes: No significantly enlarged lymph nodes. Urinary bladder: Unremarkable as visualized. Reproductive: Unremarkable as visualized. Bones/joints: No acute fracture. Soft tissues: No suspicious lesions. IMPRESSION: 1. No acute findings. 2. Incidental findings as described. Dictated and Authenticated by: Sophia Kowalski MD. Ordering:SAM Friend MD
[2022-08-18 20:36] LABS: TSH (W/Ref FT4) 4.53 uIU/mL (0.36-3.74)
[2022-08-18 20:53] LABS: FREE T4 0.73 ng/dL (0.76-1.46)
[2022-08-21 10:43] LABS: HIV-1/2 Ag & Ab Screen Negative (Negative)
== END 2022-08-18 16:16 ==
LOC: DI 15:57
PROVIDERS: PCP Nurse Practitioner; Visit Provider Physician Assistant
DX: R22.1 Localized swelling, mass and lump, neck (principal); R59.0 Localized enlarged lymph nodes; R53.81 Other malaise; E07.89 Other specified disorders of thyroid; R06.02 Shortness of breath; R51.9 Headache, unspecified; F41.8 Other specified anxiety disorders; R50.9 Fever, unspecified; J02.9 Acute pharyngitis, unspecified; Z11.4 Encounter for screening for human immunodeficiency virus [HIV]; Z01.812 Encounter for preprocedural laboratory examination
CPT/HCPCS: 70491; 74177; 80053; 87389; 71260; 82565; 84439; 84443; 85025; 86480

== ENCOUNTER 2022-08-18 16:16 | Outpatient (REF) | payer MEDICAID, SELFPAY | END 2022-08-18 16:17 | disposition home or self-care (01) | LOC: LBN 16:16 | PROVIDERS: PCP Nurse Practitioner; Visit Provider Physician Assistant | DX: J02.9 Acute pharyngitis, unspecified (principal) | CPT/HCPCS: 87070 ==

== ENCOUNTER 2022-08-23 12:49 | Outpatient (CLI) | payer MEDICAID, SELFPAY ==
[2022-08-23 15:12] LABS: Lithium 0.7 mmol/l (0.6-1.2)
[2022-08-23 22:44] LABS: Prolactin 37.2 ng/mL (See Note)
[2022-08-25 11:47] LABS: TB Interpretation Negative (Negative); TB1 Ag minus Nil 0.04 IU/ml; TB2 Ag minus Nil 0.06 IU/mL
== END 2022-08-23 12:50 | disposition home or self-care (01) ==
LOC: LBO 12:50
PROVIDERS: Physician Assistant; PCP Nurse Practitioner; Visit Provider Student in an Organized Health Care Education/Training Program
DX: R22.1 Localized swelling, mass and lump, neck (principal); F25.0 Schizoaffective disorder, bipolar type; Z79.899 Other long term (current) drug therapy; Z51.81 Encounter for therapeutic drug level monitoring; R59.1 Generalized enlarged lymph nodes; R50.9 Fever, unspecified
CPT/HCPCS: 36415; 80178; 84146; 86480

== ENCOUNTER 2022-11-03 01:17 | Outpatient (CLI) | payer MEDICAID, SELFPAY ==
[2022-11-03 13:36] LABS: Lithium 0.4 mmol/l (0.6-1.2)
[2022-11-03 22:48] LABS: Thyroglobulin Antibody <15 U/mL (<=60); Thyroperoxidase Antibody <28 U/mL (<=60)
[2022-11-10 16:25] LABS: Thyroid Stimulating Immunoglob <1.0 TSI index (<=1.3)
== END 2022-11-03 01:18 | disposition home or self-care (01) ==
PROVIDERS: Registered Nurse Maternal Newborn; Student in an Organized Health Care Education/Training Program; PCP Nurse Practitioner; Visit Provider Student in an Organized Health Care Education/Training Program
DX: E04.9 Nontoxic goiter, unspecified (principal); F25.0 Schizoaffective disorder, bipolar type; Z79.899 Other long term (current) drug therapy; Z51.81 Encounter for therapeutic drug level monitoring
CPT/HCPCS: 36415; 86376; 80178; 84445

== ENCOUNTER 2023-01-09 03:36 | Outpatient (CLI) | payer MEDICAID, SELFPAY ==
[2023-01-09 12:13] LABS: TSH (W/Ref FT4) 7.26 uIU/mL (0.36-3.74)
[2023-01-09 12:41] LABS: Lithium 0.4 mmol/l (0.6-1.2)
[2023-01-09 12:51] LABS: FREE T4 0.74 ng/dL (0.76-1.46)
== END 2023-01-09 03:37 | disposition home or self-care (01) ==
LOC: LBO 03:36
PROVIDERS: PCP Nurse Practitioner; Visit Provider Student in an Organized Health Care Education/Training Program
DX: F25.0 Schizoaffective disorder, bipolar type (principal); Z79.899 Other long term (current) drug therapy
CPT/HCPCS: 36415; 80178; 84439; 84443

== ENCOUNTER 2023-03-22 03:59 | Outpatient (CLI) | payer MEDICAID, SELFPAY ==
[2023-03-22 11:47] LABS: HGB 14.5 g/dL (11.2-15.7); MCH 30.5 pg (27.0-33.0); MCV 93 fL (80-95); MPV 9.5 fL (8.0-11.0); Platelet Count 311 10^3/uL (130-400); RBC 4.75 10^6/uL (3.93-5.22); RDW 12.7 % (11.7-14.6); RDW-SD 43.4 fL; WBC 7.14 10^3/uL (4.4-10.8)
[2023-03-22 12:05] LABS: ALT 28 U/L (14-59); AST 15 U/L (15-37); Albumin 3.8 g/dL (3.4-5.0); Alkaline Phosphatase 86 U/L (46-116); Anion Gap 8.5 mmol/L (3-11); BUN 8 mg/dL (7-18); Bilirubin, Total 0.4 mg/dL (0.2-1.0); CO2 25.5 mmol/L (21.0-32.0); Calcium 9.6 mg/dL (8.5-10.1); Chloride 106 mmol/L (98-107); Estimated GFR 76.29 (mL/min/1.73m2); Glucose 101 mg/dL (74-106); Potassium 4.1 mmol/L (3.5-5.1); Sodium 140 mmol/L (136-145)
== END 2023-03-22 04:00 | disposition home or self-care (01) ==
LOC: LBO 03:59
PROVIDERS: PCP Nurse Practitioner; Visit Provider Student in an Organized Health Care Education/Training Program
DX: Z79.899 Other long term (current) drug therapy (principal)
CPT/HCPCS: 36415; 80053; 85027

== ENCOUNTER 2023-04-25 03:06 | Outpatient (CLI) | payer MEDICAID, SELFPAY ==
[2023-04-25 15:28] LABS: FREE T4 0.84 ng/dL (0.76-1.46)
== END 2023-04-25 03:07 | disposition home or self-care (01) ==
LOC: LBO 03:06
PROVIDERS: PCP Nurse Practitioner; Visit Provider Internal Medicine Endocrinology, Diabetes & Metabolism
DX: E03.9 Hypothyroidism, unspecified (principal)
CPT/HCPCS: 36415; 84439; 84443

== ENCOUNTER 2023-07-10 03:24 | Outpatient (CLI) | payer MEDICAID, SELFPAY ==
[2023-07-10 17:22] LABS: FREE T4 0.77 ng/dL (0.76-1.46); TSH 1.67 uIU/mL (0.36-3.74)
== END 2023-07-10 03:25 | disposition home or self-care (01) ==
LOC: LBO 03:24
PROVIDERS: PCP Nurse Practitioner; Visit Provider Internal Medicine Endocrinology, Diabetes & Metabolism
DX: E03.9 Hypothyroidism, unspecified (principal)
CPT/HCPCS: 36415; 84439; 84443

== ENCOUNTER 2023-10-08 15:44 | Outpatient (REF) | payer MEDICAID, SELFPAY ==
[2023-10-08 21:22] LABS: Bilirubin Negative (Negative); Blood Negative (Negative); Clarity Clear (Clear); Glucose Negative (Negative); Ketones Negative (Negative); Leukocyte Esterase Trace (Negative); Nitrite Negative (Negative); Urobilinogen 0.2 mg/dL (Up to 0.2)
[2023-10-08 21:40] LABS: Bacteria Moderate HPF (Negative); C & S Indicated? No/Sq. Contamination; Crystals Negative HPF (Negative); Epithelial Cells Many HPF (Negative); Mucus Negative (Negative); RBC Negative HPF (0-2)
== END 2023-10-08 15:45 | disposition home or self-care (01) ==
LOC: LBN 15:44
PROVIDERS: PCP Nurse Practitioner; Visit Provider Nurse Practitioner Family
DX: R39.89 Other symptoms and signs involving the genitourinary system (principal); R82.998 Other abnormal findings in urine
CPT/HCPCS: 81003; 81015

== ENCOUNTER 2023-10-09 16:02 | Outpatient (REF) | payer MEDICAID, SELFPAY ==
[2023-10-09 21:06] LABS: Bilirubin Negative (Negative); Blood Negative (Negative); Clarity Clear (Clear); Glucose Negative (Negative); Ketones Negative (Negative); Leukocyte Esterase Negative (Negative); Nitrite Negative (Negative); Specific Gravity 1.015 (1.005-1.025); Urobilinogen 0.2 mg/dL (Up to 0.2)
== END 2023-10-09 16:03 | disposition home or self-care (01) ==
LOC: LBN 16:02
PROVIDERS: PCP Nurse Practitioner; Visit Provider Nurse Practitioner Family
DX: R39.89 Other symptoms and signs involving the genitourinary system (principal)
CPT/HCPCS: 81003

== ENCOUNTER 2024-02-15 15:09 | Outpatient (REF) | payer MEDICAID, SELFPAY | END 2024-02-15 15:10 | disposition home or self-care (01) | LOC: LBN 15:09 | PROVIDERS: PCP Nurse Practitioner; Visit Provider Physician Assistant | DX: J02.9 Acute pharyngitis, unspecified (principal) | CPT/HCPCS: 87070 ==

== ENCOUNTER 2024-02-21 15:16 | Emergency (ER) | payer MEDICAID, SELFPAY ==
[2024-02-21 15:22] VITALS: BP 123/90; PULSE 104; RESP 16; TEMP 37.1; O2SAT 99
--- NOTE | 2024-02-21 15:45 | DI.CT_ITS ---
Exam(s) CT HEAD FACIAL WO EXAM: CT HEAD FACIAL WO CLINICAL HISTORY: head injury with seizure. TECHNIQUE: Imaging Protocol: Axial computed tomography images with coronal and sagittal reformatted images were created and reviewed COMPARISON: No exams were available for comparison FINDINGS: BRAIN: There are no skull fractures nor fluid in the visualized paranasal sinuses. There is no evidence of intracranial hemorrhage, mass effect, or shift of midline structures. There are no extra-axial fluid collections. The ventricles are not enlarged or shifted and there is no blo od within the ventricular system nor within the basal cisterns. MAXILLOFACIAL CT SCAN: There is no evidence of facial fractures nor fluid in the visualized paranasal sinuses. There is no evidence of orbital blowout fracture. Orbits and retro conal compartments appear unremarkable. IMPRESSION: No acute intracranial findings on this noninfused CT scan of the brain. No evidence of facial bone fractures nor orbital fractures. Called by myself to ER 02/21/2024 at 4:42 pm RADIATION DOSE DELIVERED: 1,347.84mGy.cm Total DLP DATA REPOSITORY: All CT scans at this facility are submitted to the National Radiology Data Registry (NRDR) Dose Index Registry (DIR) with the [employer] (ACR). RADIATION OPTIMIZATION: All CT scans at this facility use at least one of these dose optimization te chniques: automated exposure control; mA and/or kV adjustment per patient size (includes targeted exa ms where dose is matched to clinical indication); or iterative reconstruction.
--- NOTE | 2024-02-21 15:52 | ED.GENADUL_ITS ---
Discharge Plan Disposition Patient Disposition: Home Discharge Details Clinical Impression: Psychogenic nonepileptic seizure, Left elbow pain Primary Care Provider: Adrienne Copeland ED Provider: Sarah Beth Fernandez Home Meds and New Rx's Prescriptions: Continued cranberry extract 200 mg capsule 200 mg PO DAILY PRN Rx Instructions: administer with a meal norethindrone (contraceptive) [Jencycla] 0.35 mg tablet 0.35 mg PO DAILY Qty: 84 5RF ammonium lactate 12 % cream 1 applic topical Patient Comments: apply topically if needed for DRY SKIN amoxicillin-pot clavulanate 875-125 mg tablet 1 tab PO Q12H Qty: 14 0RF fluticasone propionate [Flonase Allergy Relief] 50 mcg/actuation spray,suspension 1 spray intranasal DAILY Qty: 16 0RF Rx Instructions: administer into each nostril acetylcysteine [NAC] 600 mg capsule 600 mg PO BID fluoxetine 40 mg capsule 40 mg PO DAILY Rx Instructions: note dated 01/05/20 [facility] clonazepam 1 mg tablet,disintegrating 1.5 mg PO PRN Rx Instructions: in AM pyridoxine (vitamin B6) 100 mg tablet 300 mg PO BID lithium carbonate 300 mg capsule 600 mg PO QHS Rx Instructions: take 2 caps with 150mg cap to = 750mg qhs olanzapine 10 mg tablet 10 mg PO DAILY olanzapine 20 mg tablet 20 mg PO QHS clonazepam 2 MG tablet 2 mg PO .COMPLEX Rx Instructions: 2 mg orally at night; Discharge Instructions Additional Instructions: Please call your [facility] specialist first thing in the morning to schedule follow-up appointment to discuss today's seizure. Your labs were all reassuring. No fracture was noted on elbow xray or facial bones CT. Your head CT was normal. I encourage you to continue taking all of your medications as prescribed. For your elbow pain, I recommend using ice for 10 to 15 minutes at a time every couple of hours for pain/swelling. You may also continue using Tylenol. Follow-up with your primary care provider if your elbow continues giving you some discomfort beyond the next week, as physical therapy may be helpful. Return to emergency care if you develop new severe headaches, experienced head injury or other injury due to seizure, have unusual seizure activity or do not return to baseline after seizure activity, turning blue while having a seizure, or if you are very worried and need to be rechecked again immediately HPI General Date/Time Provider Initiated Documentation: 02/21/24 15:31 . HPI Narrative: Avril is a 33 year old female who presents to the ED accompanied by her mother for evaluation of head injury and L elbow pain after fall sustained during seizure. She has a history of psychogenic nonepileptic seizures managed by psychiatry at [facility] (onset age 18, not treated with antiepileptics), usualy triggered by stress, weather, and infection. She reports that this afternoon around 3 pm she was baking muffins with family in the kitchen when she felt a sudden thunderclap headache on the R parietal area that radiated to her ear that occurred when she bent down to put the muffins in the oven. She lost vision and hearing, then fell forward onto the floor, hitting the R side of her face, R breast, and landing on L elbow. Her R hand was clenched in a fist and she was breathing quickly and shallow, no limb jerking or loss of bowel/bladder control. Seizure was witnessed by parents. Post-ictal period lasted approx 1 minute, now back to baseline. This is similar to seizures she had in the past (age 18- 19). Last typical seizure was last night while watching TV (this did not include headache or fist clenching). She is currently being treated for sinus and throat infection with Augmentin, last day of abx tmrw. Denies fever/chills, vision changes, eye pain, neck pain, back pain, difficulty breathing, new cough, chest pain (other than R breast discomfort that feels like bruising), abdominal pain, nausea/vomiting, change in bowel/bladder function, extremity numbness/tingling or weakness. She is able to ambulate without difficulty. Physical exam reassuring. Avril is alert and oriented, clear speech, in no acute distress. She does appear anxious, especially while discussing recent events. Faint yellowed bruise to R cheekbone. PERRL, EOMs intact. hog dropper II-XII intact as tested. No point tenderness to facial bones or deformities. No sanford's sign or raccoon eyes. No obvious dental damage or bite ni to tongue. Full painless ROM of neck, no c-spine/t-spine/l-spine stepoff/tenderness/deformity. No pain with palpation of chest wall or obvious ecchymosis to anterior chest wall. Easy work of breathing, lung sounds clear bilaterally. Normal heart sounds. Abdomen soft, non distended, nontender to palpation. +swelling and tenderness to L elbow, full ROM of wrist and hand. Sensation grossly intact to fingers, strong hand grasp. 5/5 muscle strength to upper and lower extremities. Normal gait and heel-toe walk. Due to elbow pain, Romberg deferred. D/dx includes but is not limited to: functional seizure, occult infection, electrolyte imbalance, intracranial hemorrhage, elbow fracture, contusion I independently interpreted the following tests: CBC, CMP, TSH and UA reassuring. HCG negative. Head and facial bone CT negative for acute intracranial findings. Elbow xray negative for fracture or dislocation. Overall workup today reassuring. No acute intracranial pathology noted on CT. Elbow pain most likely due to contusion/trauma. No concerning features for today's seizure, it appears today's seizure is similar to previous seizures, likely triggered by stress. Pt is not on any antiepileptic medication, treatment provided by psychiatry for functional seizures; recommend close follow-up with [facility] specialist. Reviewed symptomatic management, red flags indicating need for return to emergency care, and the importance of follow-up. Related Data Home Medications ?Medication ?Instructions ?Recorded ?Confirmed clonazepam 2 mg tablet 2 mg PO .COMPLEX 11/20/14 02/21/24 acetylcysteine 600 mg capsule (NAC) 600 mg PO BID 07/09/19 02/21/24 clonazepam 1 mg disintegrating 1.5 mg PO PRN 01/16/20 02/21/24 tablet fluoxetine 40 mg capsule 40 mg PO DAILY 01/16/20 02/21/24 pyridoxine (vitamin B6) 100 mg 300 mg PO BID 10/18/21 02/21/24 tablet lithium carbonate 300 mg capsule 600 mg PO QHS 07/20/22 02/21/24 cranberry extract 200 mg capsule 200 mg PO DAILY PRN 08/30/22 02/21/24 fluticasone propionate 50 1 spray intranasal DAILY #16 grams 10/08/23 02/21/24 mcg/actuation nasal spray,suspension (Flonase Allergy Relief) norethindrone (contraceptive) 0.35 0.35 mg PO DAILY #84 tabs 10/16/23 02/21/24 mg tablet (Jencycla) olanzapine 10 mg tablet 10 mg PO DAILY 02/13/24 02/21/24 olanzapine 20 mg tablet 20 mg PO QHS 02/13/24 02/21/24 ammonium lactate 12 % topical cream 1 applic topical 02/15/24 02/15/24 amoxicillin 875 mg-potassium 1 tab PO Q12H #14 tabs 02/15/24 02/21/24 clavulanate 125 mg tablet Previous Rx's ?Medication ?Instructions ?Recorded fluticasone propionate 50 1 spray intranasal DAILY #16 grams 10/08/23 mcg/actuation nasal spray,suspension (Flonase Allergy Relief) norethindrone (contraceptive) 0.35 0.35 mg PO DAILY #84 tabs 10/16/23 mg tablet (Jencycla) amoxicillin 875 mg-potassium 1 tab PO Q12H #14 tabs 02/15/24 clavulanate 125 mg tablet Allergies Allergy/AdvReac Type Severity Reaction Status Date / Time hydrocodone bitartrate (From Allergy Severe Anaphylaxsi Verified 02/21/24 18:08 Vicodin) s gluten Allergy Intermediate gi upset, Verified 02/21/24 18:08 flu like s/s lactase (From Dairy Aid) Allergy Intermediate gi s/s Verified 02/21/24 18:08 General Stated Complaint: Seizure LOURDES: 3 Review of Systems Narrative: see HPI Exam Const General: cooperative, healthy appearing, comfortable, no acute distress, well developed and anxious Nutritional Appearance: average body habitus Orientation: alert and oriented x3 HENMT Head: normal to inspection and normocephalic Ears: hearing grossly normal bilaterally General nose exam: external nose normal Face and sinus: ecchymosis on the left (cheekbone) Face images: 2 1. faint yellowed ecchymosis Mouth: oral mucosae normal Teeth and gingiva: dentition normal Throat: posterior oropharynx normal Eyes Periorbital: periorbital findings normal Eyelids: eyelids normal Pupils: PERRL EOM: EOM intact bilaterally Neck Neck: normal visual inspection, full ROM and no lymphadenopathy Chest Chest: normal inspection of the chest and normal palpation of entire chest wall Resp Effort & Inspection: normal respiratory effort and able to speak in complete sentences Auscultation: clear to auscultation bilaterally Cardio Rate: regular rate Rhythm: regular rhythm Pulses: radial pulses present GI Inspection: normal to inspection and non-distended Palpation: soft and nontender Back/Spine/Pelvis Cervical Spine: normal cervical lordosis and cervical ROM normal Thoracic/Lumbar Spine: thoracic and lumbar spine normal to inspection Skin General skin exam: no rashes or lesions noted Neuro General: patient alert, patient oriented x3, gait normal, tone normal, moves all extremities, no focal motor deficits and CN's II-XI intact bilaterally Cranial Nerves: CN's II-XI intact bilaterally, PERRL, EOM intact bilaterally, no nystagmus and facial strength normal Cognition: normal cognition Speech: speech normal Gait: normal gait Motor: muscle tone normal throughout and strength 5/5 throughout Extrem Right upper extremity: normal to inspection Left upper extremity: elbow/forearm Details: swelling (mild), abnormal ROM Details: held in an abnormal fashion Details: in flexion and distal pulses intact; no unusual warmth, no lacerations, no crepitus and no deformity, wrist Details: normal to inspection and normal ROM and hand Details: normal to inspection, normal capillary refill, neuromotor exam normal and normal ROM of fingers Course Vital Signs Vital signs: Vital Signs Temperature 37.1 C 02/21/24 15:22 Pulse 104 H 02/21/24 15:22 Respiratory Rate 16 02/21/24 15:22 Blood Pressure 123/90 02/21/24 15:22 Pulse Oximetry 99 02/21/24 15:22 Temperature 37.1 C 02/21/24 15:22 Temperature Source Tympanic 02/21/24 15:22 Pulse 104 H 02/21/24 15:22 Respiratory Rate 16 02/21/24 15:22 Blood Pressure 123/90 02/21/24 15:22 Blood Pressure Position Sitting 02/21/24 15:22 Pulse Oximetry 99 02/21/24 15:22 Oxygen Delivery Method Room Air 02/21/24 15:22 Oxygen Flow Rate 0 02/21/24 15:22 Pain Level 9 02/21/24 15:22 Comment 2 APAP prior to leaving for hospital 02/21/24 15:22 Medical Decision Making Imaging Data Radiologic Study: Radiologist's impression: Exam(s) CT HEAD FACIAL WO EXAM: CT HEAD FACIAL WO CLINICAL HISTORY: head injury with seizure. TECHNIQUE: Imaging Protocol: Axial computed tomography images with coronal and sagittal reformatted images were created and reviewed COMPARISON: No exams were available for comparison FINDINGS: BRAIN: There are no skull fractures nor fluid in the visualized paranasal sinuses. There is no evidence of intracranial hemorrhage, mass effect, or shift of midline structures. There are no extra-axial fluid collections. The ventricles are not enlarged or shifted and there is no blood within the ventricular system nor within the basal cisterns. MAXILLOFACIAL CT SCAN: There is no evidence of facial fractures nor fluid in the visualized paranasal sinuses. There is no evidence of orbital blowout fracture. Orbits and retro conal compartments appear unremarkable. IMPRESSION: No acute intracranial findings on this noninfused CT scan of the brain. No evidence of facial bone fractures nor orbital fractures. Radiologic Study #2: Radiologist's impression: Exam(s) XR ELBOW LT COMPLETE EXAM: XR ELBOW LT COMPLETE CLINICAL HISTORY: elbow pain after fall. TECHNIQUE: 2D digital imaging was performed. COMPARISON: No exams were available for comparison FINDINGS: 3 views No evidence of fracture or joint effusion or swelling of the olecranon bursa. Radial head and neck appear intact as do the epicondyles and coracoid process. There are no loose intra-articular bodies evident. No osteochondral defects. Bone density normal. No osseous lesions. IMPRESSION: No significant radiographic findings in the left elbow. Quality:[facility] Health Related Social Needs: 2 No Data to Display PFSH All Active Problems (Updated 02/21/24 @ 18:06 by Sarah Beth Perera) Left elbow pain (Acute) Goiter (Acute) Elevated TSH (Acute ~08/2022) 09/05/22 Endocrinology note Anxiety (Chronic) 07/11/22 Psych [place] use (Acute) 10/11/21 [facility] Psych note Galactorrhea (Acute) 10/11/21 [facility] Psych note Hyperprolactinemia (Acute) 10/11/21 [facility] Psych note Aphthous stomatitis (Acute) Urinary frequency (Acute) PMDD (premenstrual dysphoric disorder) (Acute) Otitis media of both ears (Acute) Overdose of antipsychotic (Acute) Suicide attempt by drug overdose (Acute ~12/2019) Abdominal discomfort (Acute) Diarrhea (Acute) Mouth sores (Acute) Dairy product intolerance (Acute) Gluten intolerance (Acute) PTSD (post-traumatic stress disorder) (Acute) Autism spectrum disorder (Acute) Bipolar 1 disorder (Chronic) managed by [facility] psych, Sees counselor Jayne Correia Schizophrenia (Chronic) 04/12/20 [facility] Psych Visit 08/22/22 F/U Psych Psychogenic nonepileptic seizure (Acute) sees [facility] Unspecified convulsions (Acute 07/12/15) Medical History Xerosis of skin (~03/2023) Pain in right foot (~03/2023) Achilles tendinitis, right leg (~03/2023) Family History Mother Essential hypertension Grandmother Endometriosis Maternal Grandfather Diabetes Heart disease Hypertension Social History Smoking/Tobacco Use Status: Never Smoking risk assessment performed?: Yes Alcohol Intake: never Drug use: Never Substance use type: does not use Adopted: No Caregiver/Support person: Yes (Mother) Foster care: No Household members: family and other Details: parents Housing: house Do you need help understanding health information?: Always current occupation: UnEmployed Sexually active: No Do you think of yourself as: straight/heterosexual Current gender identity: female Do you feel safe at home: No Female Reproductive History Menstrual control method: pills History History 2 0 Para Hx # Term Pregnancies Multiple births Hx # Pregnancies Ectopic pregnancies AB induced Hx Number of Living Children AB spontaneous
[2024-02-21 16:32] LABS: Abs Immature Grans 0.02 10^3/uL (0.0-0.06); Absolute Basophil Count 0.04 10^3/uL (0.0-0.2); Absolute Eosinophil Count 0.28 10^3/uL (0.0-0.7); Absolute Lymphocyte Count 2.17 10^3/uL (1.2-3.4); Absolute Monocyte Count 0.82 10^3/uL (0.1-0.8); Absolute Neutrophil Count 5.15 10^3/uL (1.2-6.7); Basophils % 0.5 %; Eosinophils % 3.3 %; HCT 44.6 % (36.0-46.0); HGB 14.5 g/dL (11.2-15.7); Immature Grans % 0.2 %; Lymphocytes % 25.6 %; MCHC 32.5 % (32.0-36.0); MCV 92 fL (80-95); MPV 9.8 fL (8.0-11.0); Monocytes % 9.7 %; Neutrophils % 60.7 %; Platelet Count 294 10^3/uL (130-400); RBC 4.84 10^6/uL (3.93-5.22); RDW 12.7 % (11.7-14.6); RDW-SD 43.1 fL; WBC 8.48 10^3/uL (4.4-10.8)
[2024-02-21 16:34] LABS: Bilirubin Negative (Negative); Blood Negative (Negative); Clarity Clear (Clear); Glucose Negative (Negative); Ketones Negative (Negative); Leukocyte Esterase Negative (Negative); Nitrite Negative (Negative); Specific Gravity 1.015 (1.005-1.025); Urobilinogen 0.2 mg/dL (Up to 0.2)
--- NOTE | 2024-02-21 16:46 | DI.RAD_ITS ---
Exam(s) XR ELBOW LT COMPLETE EXAM: XR ELBOW LT COMPLETE CLINICAL HISTORY: elbow pain after fall. TECHNIQUE: 2D digital imaging was performed. COMPARISON: No exams were available for comparison FINDINGS: 3 views No evidence of fracture or joint effusion or swelling of the olecranon bursa. Radial head and neck a ppear intact as do the epicondyles and coracoid process. There are no loose intra-articular bodies e vident. No osteochondral defects. Bone density normal. No osseous lesions. IMPRESSION: No significant radiographic findings in the left elbow. DATA REPOSITORY: RADIATION DOSE DELIVERED:
[2024-02-21 18:01] LABS: ALT 18 U/L (14-59); AST 17 U/L (15-37); Albumin 4.1 g/dL (3.4-5.0); Alkaline Phosphatase 99 U/L (46-116); BUN 9 mg/dL (7-18); Bilirubin, Total 0.36 mg/dL (0.2-1.0); CREATININE 0.9 mg/dL (0.55-1.02); Calcium 9.5 mg/dL (8.5-10.1); Chloride 105 mmol/L (98-107); Estimated GFR 86.03 (mL/min/1.73m2); Glucose 95 mg/dL (74-106); Potassium 3.9 mmol/L (3.5-5.1); Sodium 137 mmol/L (136-145); TSH (W/Ref FT4) 1.67 uIU/mL (0.36-3.74); Total Protein 7.5 g/dL (6.4-8.2)
[2024-02-21 18:06] VITALS: BP 132/90; PULSE 76; RESP 16; O2SAT 98
--- NOTE | 2024-02-28 11:19 | NUR.NOTE ---
Phone call; records request: [place] [facility] Ruby Gee RN; requesting the note from ED visit 02/21/2024. She is there now. I printed the note, and faxed it to that facility, dept. Nursing Note:
== END 2024-02-21 18:29 | disposition home or self-care (01) ==
PROVIDERS: Emergency Provider Nurse Practitioner Family; PCP Nurse Practitioner
DX: F44.5 Conversion disorder with seizures or convulsions (principal); M25.522 Pain in left elbow
CPT/HCPCS: 36415; 80053; 81025; 99285; 70450; 70486; 73080; 81003; 84443; 85025; 99284

== ENCOUNTER 2024-08-04 13:19 | Outpatient (CLI) | payer MEDICAID, SELFPAY ==
[2024-08-04 15:32] LABS: Abs Immature Grans 0.02 10^3/uL (0.0-0.06); Absolute Basophil Count 0.04 10^3/uL (0.0-0.2); Absolute Eosinophil Count 0.27 10^3/uL (0.0-0.7); Absolute Lymphocyte Count 1.93 10^3/uL (1.2-3.4); Absolute Monocyte Count 0.72 10^3/uL (0.1-0.8); Absolute Neutrophil Count 4.55 10^3/uL (1.2-6.7); Basophils % 0.5 %; Eosinophils % 3.6 %; HCT 44.8 % (36.0-46.0); HGB 14.3 g/dL (11.2-15.7); Immature Grans % 0.3 %; Lymphocytes % 25.6 %; MCH 30.2 pg (27.0-33.0); MCHC 31.9 % (32.0-36.0); MCV 95 fL (80-95); MPV 9.8 fL (8.0-11.0); Monocytes % 9.6 %; Neutrophils % 60.4 %; Platelet Count 288 10^3/uL (130-400); RBC 4.74 10^6/uL (3.93-5.22); RDW 12.7 % (11.7-14.6); RDW-SD 44.2 fL; WBC 7.53 10^3/uL (4.4-10.8)
[2024-08-04 15:47] LABS: Hemoglobin A1C 5.3 % (<5.7)
[2024-08-04 16:27] LABS: Lithium 0.5 mmol/L (0.6-1.2)
[2024-08-04 16:59] LABS: ALT 28 U/L (14-59); AST 21 U/L (15-37); Albumin 3.6 g/dL (3.4-5.0); Alkaline Phosphatase 105 U/L (46-116); Bilirubin, Total 0.6 mg/dL (0.2-1.0); Calculated LDL 72 mg/dL (<100); Cholesterol 153 mg/dL (<200); HDL Cholesterol 53 mg/dL (>or=50); TSH 0.84 uIU/mL (0.36-3.74); Total Protein 6.6 g/dL (6.4-8.2); Triglyceride 140 mg/dL (<150)
[2024-08-04 17:10] LABS: Bilirubin, Direct 0.2 mg/dL (0.0-0.2)
== END 2024-08-04 13:20 | disposition home or self-care (01) ==
LOC: LBO 13:20
PROVIDERS: PCP Nurse Practitioner; Visit Provider Student in an Organized Health Care Education/Training Program
DX: Z79.899 Other long term (current) drug therapy (principal)
CPT/HCPCS: 36415; 80061; 80076; 80178; 83036; 84443; 85025

== ENCOUNTER 2024-10-22 02:20 | Outpatient (CLI) | payer MEDICAID, SELFPAY ==
[2024-10-22 13:44] LABS: Anion Gap 8.8 mmol/L (3-11); BUN 8 mg/dL (7-18); CO2 25.2 mmol/L (21.0-32.0); CREATININE 0.8 mg/dL (0.55-1.02); Calcium 9.4 mg/dL (8.5-10.1); Chloride 106 mmol/L (98-107); Estimated GFR 98.48 (mL/min/1.73m2); Glucose 102 mg/dL (74-106); Sodium 140 mmol/L (136-145)
== END 2024-10-22 02:21 | disposition home or self-care (01) ==
LOC: LBO 02:20
PROVIDERS: PCP Nurse Practitioner; Visit Provider Student in an Organized Health Care Education/Training Program
DX: F25.0 Schizoaffective disorder, bipolar type (principal); Z79.899 Other long term (current) drug therapy
CPT/HCPCS: 36415; 80048

== ENCOUNTER 2025-02-10 15:42 | Outpatient (REF) | payer MEDICAID, SELFPAY ==
--- NOTE | 2025-02-10 15:35 | PAPFT_PTH ---
PATIENT: Avril Adams V LOC: [facility] U#:[id number] AGE/SX: 34/F ROOM: RE02/10/[address]: Jacquelin Murray NP : 1990 BED: DIS: 02/10/2025 SPEC #: [id number] RECD: 02/10/25 17:16 STATUS: FE RECatina #: [id number] NITIN: 02/10/25 15:[address]: Terri GUARDADO,Jacquelin DEPT: [facility] Cytology RECD BY: Franchesca Gaston ENTERED: 02/10/25 17:17 SP TYPE: PAPFT OTHR DR: Adrienne Copeland APRN Tissues: 1 - CX/ENDOCX FOR PAP SMEARS Procedures: PAP THIN PREP/UVM Screening HPV DNA PROBE Comments: [id number] (HPV 16 & 18/45)
== END 2025-02-10 15:43 | disposition home or self-care (01) ==
LOC: LBN 15:42
PROVIDERS: PCP Nurse Practitioner; Visit Provider Nurse Practitioner Women's Health
DX: Z12.4 Encounter for screening for malignant neoplasm of cervix (principal)
CPT/HCPCS: 88142; 87624

== ENCOUNTER 2025-04-08 16:12 | Emergency (ER) | payer MEDICAID, SELFPAY ==
[2025-04-08 16:16] VITALS: BP 140/85; PULSE 97; RESP 20; TEMP 36.7; O2SAT 98
[2025-04-08 16:19] VITALS: BP 140/85; PULSE 97; RESP 20; TEMP 36.7; O2SAT 98
[2025-04-08 19:01] LABS: Glucose Negative (Negative)
--- NOTE | 2025-04-08 19:18 | W.ED.GENAD ---
Discharge Plan Disposition Patient Disposition: Home Condition: Stable Discharge Details Clinical Impression: Abdominal pain, Chest pain, pleuritic Primary Care Provider: Adrienne Copeland ED Provider: Javy Murray Home Meds and New Rx's Prescriptions: Continued cranberry extract 200 mg capsule 200 mg PO DAILY PRN Rx Instructions: administer with a meal ammonium lactate 12 % cream 1 applic topical PRN Patient Comments: apply topically if needed for DRY SKIN Zyrtec 10 mg capsule 10 mg PO DAILY PRN (Reason: allergy symptoms) Qty: 90 0RF fluticasone propionate [Flonase Allergy Relief] 50 mcg/actuation spray,suspension 1 spray intranasal DAILY Qty: 16 0RF Rx Instructions: administer into each nostril norethindrone (contraceptive) [Jencycla] 0.35 mg tablet 0.35 mg PO DAILY Qty: 84 5RF acetylcysteine [NAC] 600 mg capsule 600 mg PO BID fluoxetine 40 mg capsule 40 mg PO DAILY Rx Instructions: note dated 01/05/20 [facility] pyridoxine (vitamin B6) 100 mg tablet 300 mg PO BID olanzapine 10 mg tablet 10 mg PO DAILY olanzapine 20 mg tablet 20 mg PO QHS lithium carbonate 300 mg capsule 600 mg PO QHS Rx Instructions: [facility] med note from 09/01/24 updating med rec.HE clonazepam [Klonopin] 2 mg tablet 2 mg PO BID Rx Instructions: Changed 11/03/24 Discharge Instructions Additional Instructions: Your blood work and CAT scan did not show any emergent findings. You did have evidence of stool burden so if you notice you are having constipation you can try taking a daily stool softener such as docusate or laxative such as MiraLAX. Follow-up with your primary care provider if symptoms are continuing in a week. If you feel significantly more ill or have new symptoms such as persistent vomiting return to the emergency department for reevaluation. Stand Alone Forms: Portal Information HPI General Mode of arrival: ambulatory. Date/Time Provider Initiated Documentation: 04/08/25 16:36. Limitations to Documentation: no limitations. Information obtained by: patient. History of Present Illness 34 year old F presents to the emergency department with the chief complaint of right upper and lower abdominal pain, described as moderate, Quality is described as aching, Patient started experiencing this day(s) (5) and it has been constant. No relieving factors improve symptom(s), No exacerbating factors reported . Patient notes cough. Patient did receive the following treatments prior to arrival, none Related Data Home Medications Medication Instructions Recorded Confirmed acetylcysteine 600 mg capsule (NAC) 600 mg PO BID 07/09/19 04/08/25 fluoxetine 40 mg capsule 40 mg PO DAILY 01/16/20 04/08/25 pyridoxine (vitamin B6) 100 mg 300 mg PO BID 10/18/21 04/08/25 tablet cranberry extract 200 mg capsule 200 mg PO DAILY PRN 08/30/22 04/08/25 olanzapine 10 mg tablet 10 mg PO DAILY 02/13/24 04/08/25 olanzapine 20 mg tablet 20 mg PO QHS 02/13/24 04/08/25 ammonium lactate 12 % topical cream 1 applic topical PRN 02/15/24 04/08/25 cetirizine 10 mg capsule (Zyrtec) 10 mg PO DAILY PRN allergy 06/02/24 04/08/25 symptoms #90 caps fluticasone propionate 50 1 spray intranasal DAILY #16 grams 06/02/24 04/08/25 mcg/actuation nasal spray,suspension (Flonase Allergy Relief) lithium carbonate 300 mg capsule 600 mg PO QHS 09/05/24 04/08/25 clonazepam 2 mg tablet (Klonopin) 2 mg PO BID 11/11/24 04/08/25 norethindrone (contraceptive) 0.35 0.35 mg PO DAILY #84 tabs 02/10/25 04/08/25 mg tablet (Jencycla) Previous Rx's Medication Instructions Recorded cetirizine 10 mg capsule (Zyrtec) 10 mg PO DAILY PRN allergy 06/02/24 symptoms #90 caps fluticasone propionate 50 1 spray intranasal DAILY #16 grams 06/02/24 mcg/actuation nasal spray,suspension (Flonase Allergy Relief) norethindrone (contraceptive) 0.35 0.35 mg PO DAILY #84 tabs 02/10/25 mg tablet (Jencycla) Allergies Allergy/AdvReac Type Severity Reaction Status Date / Time hydrocodone bitartrate (From Allergy Severe Anaphylaxsi Verified 04/08/25 16:20 Vicodin) s gluten Allergy Intermediate gi upset, Verified 04/08/25 16:20 flu like s/s lactase (From Dairy Aid) Allergy Intermediate gi s/s Verified 04/08/25 16:20 General Stated Complaint: Abd Prob LOURDES: 3 Review of Systems All systems reviewed & are unremarkable except as noted in HPI and below Constitutional Constitutional: Denies chills and Denies fever(s) Cardiovascular Cardiovascular: Denies chest pain and Denies dyspnea Respiratory Respiratory: Reports cough and Denies dyspnea Gastrointestinal Gastrointestinal: Reports abdominal pain, Reports nausea and Denies vomiting Exam Const General: no acute distress Orientation: alert HENMT Head: normal to inspection Ears: external ears normal General nose exam: external nose normal Mouth: moist mucous membranes Eyes General: appearance normal, both eyes and all related structures Neck Neck: normal visual inspection Resp Effort & Inspection: normal respiratory effort and able to speak in complete sentences Cardio Jugular venous pressure: no JVD Rate: regular rate Heart Sounds: no murmurs GI Palpation: soft and tender Skin General skin exam: no rashes or lesions noted Neuro General: patient alert and patient oriented x3 Extrem General: normal to inspection Psych Mental Status: mental status grossly normal Course Vital Signs Vital signs: Vital Signs Temperature 36.7 C 04/08/25 16:16 Pulse 97 H 04/08/25 16:16 Respiratory Rate 20 04/08/25 16:16 Blood Pressure 140/85 04/08/25 16:16 Pulse Oximetry 98 04/08/25 16:16 Temperature 36.7 C 04/08/25 16:19 Pulse 97 H 04/08/25 16:19 Respiratory Rate 20 04/08/25 16:19 Blood Pressure 140/85 04/08/25 16:19 Blood Pressure Position Sitting 04/08/25 16:19 Pulse Oximetry 98 04/08/25 16:19 Oxygen Delivery Method Room Air 04/08/25 16:19 Oxygen Flow Rate 0 04/08/25 16:19 Lab/Test Results Lab/Test Results: Laboratory Tests Range/Units 04/08/25 16:57 Urine Color (Yellow) Yellow Urine Clarity (Clear) Clear Urine pH (5-8) 8.5 H Ur Specific [place] (1.005-1.025) 1.015 Urine Protein (Neg-Trace) mg/dL Negative Urine Ketones (Negative) mg/dL Negative Urine Blood (Negative) Negative Urine Nitrite (Negative) Negative Urine Bilirubin (Negative) Negative Urine Urobilinogen (Up to 0.2) mg/dL 0.2 Ur Leukocyte Esterase (Negative) Negative Urine Glucose (Negative) mg/dL Negative Medical Decision Making 34-year-old female who denies any prior abdominal surgeries comes in with 5 days of right upper and lower abdominal pain. She says she is also at a cough when she takes a deep breath the pain in her abdomen increases. Denies any chest pressure difficulty breathing. No vomiting but has had nausea. No vaginal bleeding or discharge. She is well-appearing speaking full sentences. Her abdomen is soft and nondistended. She has tenderness of the right upper and right lower quadrants. Clear lung sounds. Given the location of the pain and the pleuritic nature of her pain as well I am going to obtain a CTA of the chest to evaluate for PE versus infiltrate and also CT abdomen pelvis to evaluate for entities such as cholecystitis and appendicitis. Labs and imaging unremarkable, patient feels better and has very minimal right lower quadrant tenderness without guarding. Discussed results with her and advised that she does have evidence of constipation on the CT. She will follow-up with her PCP if not improving and return precautions given. Differential Diagnosis Differential Diagnosis: pe, cholecystitis, appendicitis Medical Records Medical records reviewed: Yes I reviewed the patient's medical records. Lab Data Lab results reviewed: Yes I reviewed the patient's lab results. 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 [facility] note Goiter (Acute) Elevated TSH (Acute ~08/2022) 09/05/22 Endocrinology note Anxiety (Chronic) 07/11/22 Psych [place] use (Acute) 10/11/21 [facility] Psych note Hyperprolactinemia (Acute) 10/11/21 [facility] Psych note Aphthous stomatitis (Acute) Urinary frequency (Acute) PMDD (premenstrual dysphoric disorder) (Acute) Otitis media of both ears (Acute) Overdose of antipsychotic (Acute) Suicide attempt by drug overdose (Acute ~12/2019) Abdominal discomfort (Acute) Diarrhea (Acute) Mouth sores (Acute) Dairy product intolerance (Acute) Gluten intolerance (Acute) PTSD (post-traumatic stress disorder) (Acute) Autism spectrum disorder (Acute) Bipolar 1 disorder (Chronic) managed by [facility] psych, Sees counselor Jayne Correia Schizophrenia (Chronic) 04/12/20 [facility] Psych Visit 08/22/22 F/U Psych Psychogenic nonepileptic seizure (Acute) sees [facility] Unspecified convulsions (Acute 07/12/15) Medical History (Updated 04/08/25 @ 21:28 by Javy Murray MD) History of galactorrhea Medication induced Galactorrhea 10/11/21 [facility] Psych note 02/10/25: has stopped at this time Xerosis of skin (~03/2023) Pain in right foot (~03/2023) Achilles tendinitis, right leg (~03/2023) Family History Mother Essential hypertension Grandmother Endometriosis Maternal Grandfather Diabetes Heart disease Hypertension Social History Smoking/Tobacco Use Status: Never Smoking risk assessment performed?: Yes Alcohol Intake: never Drug use: Never Substance use type: does not use Adopted: No Caregiver/Support person: Yes (Mother) Foster care: No Household members: family and other Details: parents Housing: house Do you need help understanding health information?: Always current occupation: UnEmployed Sexually active: No Do you think of yourself as: straight/heterosexual Current gender identity: female Do you feel safe at home: No Female Reproductive History Menstrual control method: pills History History 0 Para Hx # Term Pregnancies Multiple births Hx # Pregnancies Ectopic pregnancies AB induced Hx Number of Living Children AB spontaneous
[2025-04-08] MEDS: Omnipaque 350 MG/ML 100 ML BTL IJ (20:02)
[2025-04-08 20:04] LABS: Abs Immature Grans 0.04 10^3/uL (0.0-0.06); HCT 43.4 % (36.0-46.0); HGB 14.1 g/dL (11.2-15.7); Immature Grans % 0.4 %; MCH 29.5 pg (27.0-33.0); MCHC 32.5 % (32.0-36.0); MCV 91 fL (80-95); MPV 10.0 fL (8.0-11.0); Platelet Count 293 10^3/uL (130-400); RBC 4.78 10^6/uL (3.93-5.22); RDW 12.8 % (11.7-14.6); RDW-SD 42.7 fL; WBC 11.03 10^3/uL (4.4-10.8)
[2025-04-08] MEDS: Normal Saline - Diluent 50 ML VIAL IJ (20:05)
[2025-04-08] MEDS: Normal Saline Flush 10 ML SYR IVP (20:05)
--- NOTE | 2025-04-08 20:10 | DI.CT_ITS ---
Exam(s) CT CHEST PE ABD PELVIS W EXAM: CT CHEST PE ABD PELVIS W CLINICAL HISTORY: pleuritic right sided chest pain and abdominal romain. TECHNIQUE: Imaging Protocol: Axial CT angiography was performed with multi- slice acquisition and multi-planar and/or 3D reconstructions. CONTRAST MATERIAL: Intravenous: Omnipaque 350 Contrast volume:100 ml Oral: None COMPARISON: CT CT NECK CHEST ABD PEL W from 08/18/2022 FINDINGS: CHEST: PULMONARY ARTERIES: There are no intra-arterial filling defects to suggest the presence of acute pulmonary emboli. LUNGS: There is no evidence of pulmonary infarction.No infiltrates nor pulmonary nodules there are no pleural effusions. MEDIASTINUM: There is no hilar nor mediastinal adenopathy. Both thyroid lobes appears somewhat prominent. CARDIAC: Heart size is normal. There is no pericardial effusion. There is no significant shift of the interventricular septum.Thoracic aorta unremarkable. No evidence of dissection. OSSEOUS: No significant osseous lesions.No fractures.. ABDOMEN: There is no ascites. LIVER: There are no focal hepatic lesions nor dilatation of intrahepatic ducts. GALLBLADDER/BILIARY: No obvious gallbladder pathology. CBD is not dilated. PANCREAS: No evidence of pancreatic mass nor dilatation of the pancreatic duct. SPLEEN: Spleen is not enlarged. There are no intrasplenic lesions. Splenic and portal veins are patent. ADRENALS: There are no significant adrenal masses. KIDNEYS:No cysts evident. No calculi nor hydronephrosis. No solid renal masses. ABDOMINAL AORTA: Abdominal aorta is not enlarged. LYMPH NODES: There is no retroperitoneal or para-aortic adenopathy. ABDOMINAL WALL/GI: No evidence of significant anterior abdominal wall hernia. Moderate-increased amount of fecal material throughout the colon. PELVIS: LYMPH NODES: There is no intrapelvic nor inguinal adenopathy. GI: No evidence of appendicitis.No evidence of sigmoid diverticulitis. URINARY BLADDER: No calculi nor masses evident REPRODUCTIVE: Uterus size normal. There is a cyst in the right ovary which measures 1.6 x 1.5 cm. There is a tiny amount of fluid in the left side of the cul-de-sac. No masses in the left adnexa. OSSEOUS: No significant osseous lesions. No fractures. IMPRESSION: 1. No evidence of acute pulmonary emboli nor pulmonary infarction. 2. No intrathoracic findings. 3. No acute findings in the abdomen pelvis. 4. Moderate increased amount of fecal material throughout the colon. Correlation any clinical signs of constipation recommended. 5. There is a simple appearing cyst in the right ovary measuring 16 x 15 mm. Probably follicular. There is a small amount of free fluid in the dependent aspect of the left side of the pelvis. No evidence of appendicitis nor diverticulitis. Preliminary V right report was reviewed. RADIATION DOSE DELIVERED: 1,106.05mGy.cm Total DLP DATA REPOSITORY: All CT scans at this facility are submitted to the National Radiology Data Registry (NRDR) Dose Index Registry (DIR) with the [employer] (ACR). RADIATION OPTIMIZATION: All CT scans at this facility use at least one of these dose optimization techniques: automated exposure control; mA and/or kV adjustment per patient size (includes targeted exams where dose is matched to clinical indication); or iterative reconstruction.
[2025-04-08 20:19] LABS: Magnesium 2.0 mg/dL (1.6-2.6)
[2025-04-08 20:20] LABS: Lipase 30 U/L (<53)
[2025-04-08] MEDS: Ketorolac 15 MG/ML VIAL IVP (20:21)
[2025-04-08] MEDS: Prochlorperazine 10 MG/2 ML VIAL IVP (20:21)
[2025-04-08 20:22] LABS: ALT 22 U/L (10-49); AST 24 U/L (<34); Albumin 4.5 g/dL (3.4-5.0); Alkaline Phosphatase 111 U/L (46-116); Anion Gap 8.8 mmol/L (3-11); BUN 6 mg/dL (9-23); Bilirubin, Total 0.40 mg/dL (0.2-1.2); CO2 27.2 mmol/L (20.0-31.0); Calcium 9.3 mg/dL (8.3-10.6); Chloride 106 mmol/L (98-107); Glucose 92 mg/dL (74-106); Potassium 3.8 mmol/L (3.5-5.1); Sodium 142 mmol/L (136-145); Total Protein 7.1 g/dL (5.7-8.2)
[2025-04-08 21:10] VITALS: RESP 18
--- NOTE | 2025-04-08 21:17 | DI.VRAD_ITS ---
PROCEDURE INFORMATION: Exam: CTA Chest With Contrast Exam date and time: 04/08/2025 7:55 PM Age: 34 years old Clinical indication: Localized; Right lower quadrant (rlq); Right-sided; Pleuritic right sided chest pain and abdominal pain TECHNIQUE: Imaging protocol: Computed tomographic angiography of the chest with contrast. Exam focused on the arteries. 3D rendering (Not supervised by radiologist): MIP and/or 3D reconstructed images were created by the technologist. Radiation optimization: All CT scans at this facility use at least one of these dose optimization techniques: automated exposure control; mA and/or kV adjustment per patient size (includes targeted exams where dose is matched to clinical indication); or iterative reconstruction. Contrast material: [id number]; Contrast volume: 100 ml; Contrast route: INTRAVENOUS (IV); COMPARISON: CT NECK CHEST ABD PEL W 18/08/2022 17:39 FINDINGS: Pulmonary arteries: The pulmonary arteries are normal in caliber. No evidence of acute pulmonary embolism. Aorta: The aorta is normal without evidence of aneurysmal dilatation, dissection or occlusive disease. Lungs: There is no evidence of focal pulmonary consolidation. No evidence of pulmonary parenchymal inflammatory changes. There is no evidence of pulmonary masses. Pleural spaces: There is no evidence of pneumothorax. There are no pleural effusions present. Heart: The cardiac structures are normal. The right ventricular to left ventricular ratio is normal measuring approximately 1.0. Esophagus: No evidence of gastroesophageal reflux. Lymph nodes: There is no evidence of lymphadenopathy. Diaphragm: A small hiatal hernia is present. Intraperitoneal space: Please see CT of the abdomen and pelvis. Bones/joints: The spine, sternum, ribs, and pectoral girdles show no evidence of acute abnormality. Soft tissues: There are no soft tissue masses or fluid collections. Other findings: The mediastinal structures are normal. Please see CT of the abdomen and pelvis. IMPRESSION: 1. No evidence of acute pulmonary embolism. 2. No definitive active cardiopulmonary disease present. PROCEDURE INFORMATION: Exam: CT Abdomen And Pelvis With Contrast Exam date and time: 04/08/2025 7:55 PM Age: 34 years old Clinical indication: Localized; Right lower quadrant (rlq); Right-sided; Pleuritic right sided chest pain and abdominal pain TECHNIQUE: Imaging protocol: Computed tomography of the abdomen and pelvis with contrast. Radiation optimization: All CT scans at this facility use at least one of these dose optimization techniques: automated exposure control; mA and/or kV adjustment per patient size (includes targeted exams where dose is matched to clinical indication); or iterative reconstruction. Contrast material: [id number]; Contrast volume: 100 ml; Contrast route: INTRAVENOUS (IV); COMPARISON: CT NECK CHEST ABD PEL W 18/08/2022 17:39 FINDINGS: Lungs: Please see CT of the chest and lungs. Liver: There are no focal liver lesions present. There is no evidence of intrahepatic or extrahepatic biliary ductal dilation. Gallbladder and biliary ducts: The gallbladder is normal. There is no cholelitiasis, wall thickening or pericholecystic fluid to suggest cholecystitis. Pancreas: The pancreas is normal. Spleen: The spleen is normal. Adrenal glands: The adrenal glands are normal. Kidneys and ureters: The kidneys are normal. Stomach and bowel: There is moderate increased colonic fecal content. The colon is mildly distended. These findings suggest a moderate degree of constipation. There is fecalization of the small bowel. Consider chronic constipation.Clinical correlation recommended. There is no evidence of intestinal obstruction. No diverticulitis is present. Appendix: There is no evidence of appendicitis. Intraperitoneal space: There is no free intraperitoneal air. There is no evidence of free intraperitoneal or pelvic fluid. There are no soft tissue masses or fluid collections. Vasculature: The aorta is normal without evidence of significant atherosclerosis or aneurysmal disease. The peripheral arterial vascular system visualized is unremarkable. The portal venous system visualized is unremarkable. The venous system visualized is unremarkable. Lymph nodes: There is no evidence of lymphadenopathy. Urinary bladder: The bladder is normal. Reproductive: The uterus is normal. The ovaries are normal. Bones/joints: The skeletal structures show no evidence of fracture or other acute processes. Soft tissues: The extra-abdominal soft tissues are normal. IMPRESSION: 1. There is moderate increased colonic fecal content. The colon is mildly distended. These findings suggest a moderate degree of constipation. There is fecalization of the small bowel. Consider chronic constipation.Clinical correlation recommended. 2. Otherwise, no definitive explanation for patient's current clinical presentation elicited on this study. Dictated and Authenticated by: Marck Haro MD. Orderin Terri Palafox MD
[2025-04-08 21:42] VITALS: BP 129/81; PULSE 88; RESP 16; O2SAT 98
== END 2025-04-08 21:48 | disposition home or self-care (01) ==
PROVIDERS: Emergency Provider Emergency Medicine; PCP Nurse Practitioner
DX: R10.11 Right upper quadrant pain (principal); R07.81 Pleurodynia; R10.31 Right lower quadrant pain
CPT/HCPCS: 99284; 99285; 96374; 96375; 81025; 36415; 71275; 74177; 80053; 83690; 81003; 83735; 85025; J0780; J1885; J3490